=== PATIENT | female | born 1970 | race African-American/Black ===

== ENCOUNTER 2018-11-13 13:21 | Emergency (ER) | payer MEDICAID ==
[~2018-11-13] VITALS: Ht 152.4 cm; Wt 50.0 kg
[2018-11-13] MEDS ORDERED: IBUPROFEN 600MG TABLET PO ONE (14:30)
[2018-11-13] MEDS ORDERED: METHOCARBAMOL 500MG TABLET PO ONE (16:15)
[2018-11-13 16:16] VITALS: BP 124/82
== END 2018-11-13 16:22 | disposition home or self-care (01) ==
LOC: ER 13:43
DX: S16.1XXA Strain of muscle, fascia and tendon at neck level, initial encounter (principal); J45.909 Unspecified asthma, uncomplicated; F32.9 Major depressive disorder, single episode, unspecified; Z98.890 Other specified postprocedural states; Z88.0 Allergy status to penicillin; V49.88XA Car occupant (driver) (passenger) injured in other specified transport accidents, initial encounter; Y93.89 Activity, other specified; Y92.89 Other specified places as the place of occurrence of the external cause; Y99.8 Other external cause status
CPT/HCPCS: 81025; 99284